=== PATIENT | female | born 1940 ===

== ENCOUNTER 2016-09-06 10:41 | Emergency (ER) | payer MEDICARE, OTHER ==
--- NOTE | ~2016-09-06 | ER ---
PATIENT'S NAME: DIONE ABDI [facility] AGE: 76 Y [address] ROOM: [place] [address] LOCATION: [facility] ADMIT DATE: 09/06/2016 ER/Outpatient Report DISCHARGE DATE: 09/06/2016 FAMILY PHYSICIAN: Yuli Cheek MD ATTENDING PHYSICIAN: Sundar Li Time of Arrival: 1041 hours. Time of Evaluation: 1042 hours. CHIEF COMPLAINT: Fall, left arm pain. HISTORY OF PRESENT ILLNESS: The patient is a 76-year-old female, who presents to the emergency department today with chief complaint of left arm pain after fall. The patient reports that it occurred hour and half prior to arrival. She was reaching for something when she turned around and fell, her arm landed on a chair. She has had sharp pain, 5/10 in severity. It is worse with movement in her right upper arm. She denies any chest pain. No shortness of breath. However, she has not quite felt like greatest lately and she has a difficult time discussing this. No nausea or vomiting. No diarrhea or constipation. PAST MEDICAL HISTORY: Hypothyroidism, coronary artery stents, heart disease, atrial fibrillation, obstructive sleep apnea. PAST SURGICAL HISTORY: Knee replacement x2, heart stents. SOCIAL HISTORY: The patient denies any tobacco use, alcohol use, or illicit drug use. ALLERGIES: NO KNOWN DRUG ALLERGIES. MEDICATIONS: Please see list. PRIMARY CARE DOCTOR: Yuli Cheek MD. CONSTRUCTION MANAGEMENT ASSISTANT: Perico Pardo MD REVIEW OF SYSTEMS: PATIENT'S NAME: DIONE ABDI [facility] AGE: 76 Y [address] ROOM: [place] [address] LOCATION: [facility] ADMIT DATE: 09/06/2016 ER/Outpatient Report DISCHARGE DATE: 09/06/2016 FAMILY PHYSICIAN: Yuli Cheek MD ATTENDING PHYSICIAN: Sundar Li All systems are reviewed by myself and are negative with the exception of those discussed in HPI and past medical history. PHYSICAL EXAMINATION: VITAL SIGNS: Weight 89 kg, blood pressure 188/84, pulse 59, respiratory rate 18, temperature 98.2, oxygen saturation 92% on room air. GENERAL: The patient is a 76-year-old female, who appears stated age, in mild acute distress. HEENT: Head: Normocephalic, atraumatic. Pupils are equal, round, and reactive to light. Extraocular motions are intact. Nares are patent bilaterally. TMs are clear. Oropharynx is clear. NECK: Supple. There is no nuchal rigidity. No midline tenderness to palpation. CARDIOVASCULAR: Regular rate and rhythm. No murmurs, rubs, or gallops. LUNGS: Clear to auscultation bilaterally. No wheezes, rales, or rhonchi. ABDOMEN: Soft, nontender, and nondistended. No rebound, rigidity, or guarding. MUSCULOSKELETAL: The patient has tenderness to palpation in the upper left arm. She is neurovascularly intact. 2/4 pulses. Good sensation. SKIN: Warm and dry. LABORATORY DATA AND X-RAYS: EKG is obtained, is interpreted by myself at 1102 hours shows sinus rhythm with a rate of 57, left axis deviation, GA interval 206, otherwise normal interval. No ST elevation, ST depression, T-wave inversions. No significant change from 04/06/2015. CBC is normal. CMP is normal. LFT is normal. Coags are normal. Magnesium is normal. Cardiac enzymes normal. ProBNP is normal. Head CT is negative. It does show atrophy. Chest x-ray shows no acute process. X-ray of the left shoulder shows a fracture of the proximal humerus to the surgical neck. IMPRESSION: 1. Acute closed left proximal humerus fracture at the surgical neck. 2. Ground-level fall. 3. Initial visit. EMERGENCY DEPARTMENT COURSE: The patient was brought back to the examination room. Seen and evaluated by myself. IV is established. Laboratory analysis and imaging are obtained as described above. The patient is given fentanyl 25 mcg IV, with a repeat dose at 1205 hours, given another 25 mcg of fentanyl IV. With the patient feeling well lately, we did do a full workup with this history and was unremarkable. I have discussed the results with the patient. I have contacted Dr. Rooney with Orthopedic Surgery and have discussed the case with him. He does report he will see the patient this afternoon or tomorrow, whatever is more PATIENT'S NAME: DIONE ABDI [facility] AGE: 76 Y [address] ROOM: [place] [address] LOCATION: [facility] ADMIT DATE: 09/06/2016 ER/Outpatient Report DISCHARGE DATE: 09/06/2016 FAMILY PHYSICIAN: Yuli Cheek MD ATTENDING PHYSICIAN: Sundar Li convenient for the patient. I have relayed this message. Written a prescription for Willard with sedation warning. I have also discussed some fall prevention. I have discussed return to care instructions including worsening symptoms or any other concerns to the emergency department as soon as possible. The patient is agreeable without further question this time. DISPOSITION: The patient discharged home in good condition. DO JENNIFER PRUITT/scarl /[id number] d: 09/06/162120 t: 09/07/16 1440, OUTPATIENT REPORT
[~2016-09-06 10:41] MED LIST changes: -BUPROPION HCL150 MG PO; -OXYGEN M-15 INH; -PERCOCET 5-3251 EACH PO; -XARELTO20 MG PO
[2016-09-06 11:36] LABS: BASOPHIL # 0.1 K/uL (0.0-0.2); BASOPHIL % 0.6 %; EOSINOPHIL # 0.1 K/uL (0.0-0.5); EOSINOPHIL % 1.5 %; HEMATOCRIT 35.8 % (33.0-46.0); HEMOGLOBIN 11.6 g/dL (10.0-15.0); IMMATURE GRANULOCYTE % 0.1 %; LYMPHOCYTE # 0.9 K/uL (0.8-4.0); MCH 32.5 pg (27.0-34.0); MCHC 32.4 gm/dL (32.0-36.5); MCV 100.3 fl (83.0-98.0); MONOCYTE # 0.8 K/uL (0.0-1.0); MONOCYTE % 9.8 %; MPV 9.9 fl (9.4-12.4); NEUTROPHIL # (ANC) 5.9 K/uL (1.8-7.8); NRBC % 0 /100WBC (0-0.00); PLATELET COUNT 228 K/uL (150-450); RBC 3.57 M/uL (3.50-5.50); RDW-CV 12.7 % (11.9-14.6); WBC 7.8 K/uL (4.0-11.0)
[2016-09-06 11:44] LABS: INR - (THERAPEUTIC) 1.04 (0.92-1.07); PROTIME 10.9 SECONDS (9.8-11.4); PTT 28 SECONDS (25-32)
[2016-09-06 11:58] LABS: ALBUMIN 3.7 gm/dL (3.5-5.0); ALK PHOS 50 IU/L (33-138); ANION GAP 10.2 (10.0-19.0); AST 21 IU/L (10-40); BLOOD UREA NITROGEN 19 mg/dL (6-24); CHLORIDE 106 mMol/L (96-110); CO2 27 mMol/L (22-32); CPK 52 IU/L (21-215); CREATININE 0.9 mg/dL (0.5-1.1); ESTIMATED GFR (MDRD EQUATION) > 60; MAGNESIUM 2.3 mg/dL (1.8-2.6); POTASSIUM 4.2 mMol/L (3.7-5.1); SODIUM 139 mMol/L (135-145); TOTAL BILIRUBIN 0.4 mg/dL (0.0-1.5); TOTAL PROTEIN 7.3 g/dL (6.0-8.4)
[2016-09-06 12:06] LABS: ALT 22 IU/L (12-78)
[2016-09-14] MEDS ORDERED: BUPROPION HCL150 MG PO (17:34)
[2016-09-14] MEDS ORDERED: XARELTO20 MG PO (17:35)
[2016-09-14] MEDS ORDERED: OXYGEN M-15 INH (17:38)
== END 2016-09-06 13:21 | disposition disaster alternative care site (69) ==
LOC: GACC 10:41
PROVIDERS: Emergency Medicine
DX: S42.212A Unspecified displaced fracture of surgical neck of left humerus, initial encounter for closed fracture (principal); E03.9 Hypothyroidism, unspecified; I48.91 Unspecified atrial fibrillation; G47.33 Obstructive sleep apnea (adult) (pediatric); Z79.899 Other long term (current) drug therapy; Z79.01 Long term (current) use of anticoagulants; Z96.653 Presence of artificial knee joint, bilateral; Z79.82 Long term (current) use of aspirin; Z86.79 Personal history of other diseases of the circulatory system; W18.30XA Fall on same level, unspecified, initial encounter
CPT/HCPCS: J3010

== ENCOUNTER → 2016-09-06 | Emergency (ER) | payer MEDICARE, OTHER ==
[~2016-09-06] MED LIST: 8 HOUR PAIN RE650 M1 PO; ASPIRIN (CHILDR81 MG PO; ASPIRIN325 MG PO; AUGMENTIN875 MG PO; BRILINTA90 MG PO; BUPROPION HCL150 MG PO; CHEWABLE MULTI1 EACH PO; CPAP INH; EFFEXOR XR75 MG PO; LEVOTHROID (S137 MCG PO; OXYGEN M-15 INH; PERCOCET 5-3251 EACH PO; SOTALOL80 MG PO; VASOTEC2.5 MG PO; VITAMIN D400 UNI1 PO; XARELTO20 MG PO; ZOCOR20 MG PO
== END | disposition disaster alternative care site (69) ==
LOC: GAMB 10:21
DX: M79.602 Pain in left arm (principal); M79.622 Pain in left upper arm

== ENCOUNTER 2016-09-18 09:52 | Observation (INO) | payer MEDICARE, OTHER ==
[~2016-09-18] VITALS: Ht 175.3 cm; Wt 88.0 kg
--- NOTE | ~2016-09-18 | OR ---
PATIENT'S NAME: DIONE ABDI [facility] AGE: 76 Y [address] ROOM: [address] [address] LOCATION: [facility] ADMIT DATE: 09/18/2016 OR/Procedure Report DISCHARGE DATE: FAMILY PHYSICIAN: Yuli Cheek MD ATTENDING PHYSICIAN: Wagner Rooney SURGEON: Wagner Rooney MD MANAGEMENT SUPERVISOR: MASOUD Espinoza DATE OF PROCEDURE: 09/18/2016 PREOPERATIVE DIAGNOSIS: Displaced surgical neck fracture, left humerus. POSTOPERATIVE DIAGNOSIS: Displaced surgical neck fracture, left humerus. PROCEDURE PERFORMED: Operation: Open reduction and internal fixation. ANESTHESIA: General ET tube. INDICATIONS: This is a 76-year-old female, who fell two weeks ago sustaining a surgical neck fracture of her left humerus. This was treated nonoperatively, but on return to clinic, there appeared to be more displacement of the fracture fragments. DESCRIPTION OF PROCEDURE: The patient was brought to the operating room, and when a satisfactory general anesthesia had been established, she was placed in the captain's chair at about 30 degrees of flexion in a semi-recumbent position. The left upper extremity was then prepped and draped in an aseptic manner. A straight anterior incision was made and carried down through the subcutaneous fat. The cephalic vein was retracted medially along with fibers of deltoid. The clavipectoral fascia was full of organized clot and phlegmon. This was debrided out and the fracture identified and exposed. The fracture was reduced and reduction checked with the C-arm. A three-hole proximal humeral locking plate was then positioned, and after a couple of tries, position was accepted. A distal hole was drilled, measured, and filled with 3.5 cortical screw. The proximal cluster of screws were then drilled, measured, and filled with locking screws. Their position was checked with the C-arm, and the fragments moved as one, and the screws did not appear to get intra-articular at all. This was accepted. The remaining two distal screw holes were filled with locking screws. Position of the implants was checked and accepted. The posterior fragment which appeared to occlude the portion of the greater tuberosity was then sutured down to the suture holes in the plate with #2 Orthocord. The wound was irrigated copiously with saline and closed by MASOUD Barillas, with a running 0 Vicryl for the deltoid, running 2-0 Vicryl for the subcutaneous fat, and skin randy for the skin. Dressings were applied, and the patient was awakened and sent to the recovery area, having tolerated the procedure well. PATIENT'S NAME: DIONE ABDI [facility] AGE: 76 Y [address] ROOM: [place] [address] LOCATION: [facility] ADMIT DATE: 09/18/2016 OR/Procedure Report DISCHARGE DATE: FAMILY PHYSICIAN: Yuli Cheek MD ATTENDING PHYSICIAN: Wagner Rooney MD SHAE ARIZMENDI/modl /[id number] d: 09/18/16 2345 t: 09/27/16 1253, OPERATIVE SUMMARY
[~2016-09-18 09:52] MED LIST changes: +BUPROPION HCL150 MG PO; +OXYGEN M-15 INH; +XARELTO20 MG PO
--- NOTE | 2016-09-19 05:17 | NUR ---
Significant Event: Alert/oriented x3. 1 Percocet at 0512 for pain 09/18. Had been no pain until then. Ice applied to upper arm. CPAP at night, removed at 0515, 3 LPM per nasal cannula. VSS. CSM WNL, strong hand grasp, warm, wiggles fingers. 1 void per bathroom - 300 mls and 2 large incontinences of urine, wears brief. Follow up:
[2016-09-19 06:08] LABS: BASOPHIL % 0.3 %; EOSINOPHIL % 0.2 %; HEMATOCRIT 29.5 % (33.0-46.0); HEMOGLOBIN 9.3 g/dL (10.0-15.0); IMMATURE GRANULOCYTE # 0.1 K/uL (0.0-0.3); IMMATURE GRANULOCYTE % 0.6 %; LYMPHOCYTE # 1.2 K/uL (0.8-4.0); LYMPHOCYTE % 11.2 %; MCH 32.2 pg (27.0-34.0); MCHC 31.5 gm/dL (32.0-36.5); MCV 102.1 fl (83.0-98.0); MONOCYTE # 1.3 K/uL (0.0-1.0); MONOCYTE % 12.3 %; MPV 8.7 fl (9.4-12.4); NEUTROPHIL # (ANC) 7.8 K/uL (1.8-7.8); NEUTROPHIL % 75.4 %; NRBC % 0 /100WBC (0-0.00); RBC 2.89 M/uL (3.50-5.50); RDW-CV 13.2 % (11.9-14.6); WBC 10.3 K/uL (4.0-11.0)
[2016-09-19 06:10] LABS: PLATELET COUNT 404 K/uL (150-450)
[2016-09-19] MEDS ORDERED: PERCOCET 5-3251 EACH PO (08:13)
--- NOTE | 2016-09-19 10:00 | NUR ---
Introduced self/role to patient and her daughter Anay. She has all the DME she thinks she will need. Has good supports. Denied any barriers to going home or at home. Did inquire about when PT was going to get started? Will followup on that. Added my name to her marker board. Spoke to patients nurse Marita. She remembered the doctor walking about PT seeing her but no orders was written. She will follow up with doctor. I followed up with patient. No additional needs or concerns.
--- NOTE | 2016-09-19 14:26 | NUR ---
Dismissal Note: Ambulates with SBA and cane. Dressing C/D/I. Sling at all times. Ice at all times. Percocet 1 tab last at 1305. Voids without difficulty. CSM WNL. Room air while awake, C-Pap with 2L O2 while sleeping. Joseph education given with dismissal instructions, patient and daughter-in- law state understanding. IV d/cd. Dismissed to home with family.
== END 2016-09-19 14:00 | disposition disaster alternative care site (69) ==
LOC: GSDC 09:52 → G3N 19:16 → GSDC 19:17 → G3N 19:17 → GSDC 09-19 14:00
PROVIDERS: ADMIT Orthopaedic Surgery
PROC: 0PSD04Z Reposition Left Humeral Head with Internal Fixation Device, Open Approach (ICD-10-PCS; principal; 2016-09-18)
DX: S42.222A 2-part displaced fracture of surgical neck of left humerus, initial encounter for closed fracture (principal); M19.90 Unspecified osteoarthritis, unspecified site; F32.9 Major depressive disorder, single episode, unspecified; I25.10 Atherosclerotic heart disease of native coronary artery without angina pectoris; E78.00 Pure hypercholesterolemia, unspecified; I10 Essential (primary) hypertension; I48.91 Unspecified atrial fibrillation; G47.30 Sleep apnea, unspecified; I25.2 Old myocardial infarction; Z99.89 Dependence on other enabling machines and devices; Z96.653 Presence of artificial knee joint, bilateral; Z98.41 Cataract extraction status, right eye; Z98.42 Cataract extraction status, left eye; Z98.890 Other specified postprocedural states; Z79.82 Long term (current) use of aspirin; Z79.01 Long term (current) use of anticoagulants; Z79.899 Other long term (current) drug therapy; W19.XXXA Unspecified fall, initial encounter
CPT/HCPCS: C1713; G0378; G8978; G8979; G8980; J0690; J1100; J2001; J2405; J3010; J7030